=== PATIENT | female | born 1990 ===

== ENCOUNTER 2017-08-29 17:34 | Emergency (ER) | payer MEDICAID, OTHER ==
[2017-08-29 18:01] VITALS: BMI 31.9
[2017-08-29] MEDS ORDERED: Bacitracin 500 Units/gm Oint Foilpak UD TOP ONE (19:26)
[2017-08-29] MEDS ORDERED: Tmp-Smz 800 mg-160 mg DS Tab PO STA (19:27)
[2017-08-29] MEDS ORDERED: Bacitracin 500 Units/gm Oint Foilpak UD ONE (19:34)
[2017-08-29] MEDS ORDERED: Tmp-Smz 800 mg-160 mg DS Tab ONE (19:35)
--- NOTE | 2017-08-29 20:25 | C.PDOC ---
History Of Present Illness Patient is a 26 y/o female who presents to the ED with a complaint of swelling, redness, and painful limp to the right thigh for the last 4 days. Patient reports to have shaved the area a week ago and developed a lump. Notes it started to drain yesterday with yellow pus. Denies any fever, numbness, or weakness. No other physical complaints at this time. Time Seen by Provider: 08/29/17 18:26 Chief Complaint (Nursing): Abnormal Skin Integrity History Per: Patient History/Exam Limitations: no limitations Onset/Duration Of Symptoms: Days (4) Current Symptoms Are (Timing): Still Present Quality Of Symptoms: Painful, Swollen, Draining Past Medical History Reviewed: Historical Data, Nursing Documentation, Vital Signs Vital Signs: Last Vital Signs Temp 98.4 F 08/29/17 20:39 Pulse 88 08/29/17 20:39 Resp 20 08/29/17 20:39 BP 125/82 08/29/17 20:39 Pulse Ox 98 08/29/17 20:39 - Medical History PMH: No Chronic Diseases Surgical History: No Surg Hx Family History: States: No Known Family Hx - Social History Hx Tobacco Use: No Hx Alcohol Use: No Hx Substance Use: No - Immunization History Hx Tetanus Toxoid Vaccination: No Hx Influenza Vaccination: No Hx Pneumococcal Vaccination: No Review Of Systems Constitutional: Negative for: Fever Skin: Positive for: Other (swollen, erythematous, painful lump) Neurological: Negative for: Weakness, Numbness Physical Exam - Physical Exam Appears: Well, Non-toxic, No Acute Distress Skin: Other (2cm wound draining blood, positive 3cm of surrounding erythema and tenderness; no induration or fluctuance) Head: Atraumatic, Normacephalic Extremity: Capillary Refill (normal on right leg) Pulses: Right Femoral: Normal, Right Dorsalis Pedis: Normal Neurological/Psych: Oriented x3, Normal Speech, Normal Cognition ED Course And Treatment O2 Sat by Pulse Oximetry: 100 Medical Decision Making Medical Decision Making: Keflex, Bacitracin, and bactrim administered. Discharge instructions discussed with patient; patient comfortable with going home. Disposition - Disposition Referrals: [facility] [Outside] Disposition: HOME/ ROUTINE Disposition Time: 20:22 Condition: GOOD Additional Instructions: Follow up with the medical doctor/clinic within 1-2 days. Return if worsened. Prescriptions: Cephalexin [Keflex] 500 mg PO BID #19 capsule Ibuprofen [Motrin] 600 mg PO TID #21 tab Sulfamethoxazole/Trimethoprim [Bactrim DS 800 mg-160 mg] 1 tab PO BID #14 tab Instructions: Skin Abscess Forms: [employer] (Scottish) Print Language: DUTCH - Clinical Impression Clinical Impression: Abscess, Cellulitis - Scribe Statement The provider has reviewed the documentation as recorded by the Scribdilip Cardoza All medical record entries made by the Bonnie were at my direction and personally dictated by me. I have reviewed the chart and agree that the record accurately reflects my personal performance of the history, physical exam, medical decision making, and the department course for this patient. I have also personally directed, reviewed, and agree with the discharge instructions and disposition.
[2017-08-29 20:40] VITALS: BP 125/82; PULSE 88; RESP 20; TEMP 98.4
[2017-08-29 20:49] VITALS: O2SAT 100
== END 2017-08-29 20:39 | disposition home or self-care (01) ==
LOC: C.ER 17:34
DX: L02.415 Cutaneous abscess of right lower limb (principal)